=== PATIENT | female | born 1975 | race Caucasian/White ===

== ENCOUNTER 2023-08-11 08:07 | Outpatient (AMB) | payer OTHER, SELFPAY ==
--- NOTE | 2023-08-11 08:11 | AM.OFFWIN_ITS ---
Intake Vital Signs 08/11/23 08:12 Height 5 ft Weight 141 lb BMI 27.5 BP 104/66 Blood Pressure Location Lt brachial Position Sitting Pulse 81 Pulse Source Pulse Oximeter Temp 98.6 F Temp Source Oral Pulse Oximetry (%) 98 Oxygen Delivery Method Room Air Intake Visit Reasons: EP sore throat chills [place] Intake Note: Pt is here today for a walk in visit. Pt c/o fever chills sweats diarrhea for 2 days home test for Covid negative. Pt states that now she has sore throat and it hurts to swallow. Allergies No Known Allergies Allergy (Verified 08/11/23 08:17) HPI HPI Comments History of Present Illness Details 48-year-old female presents today compla ining of a sore throat for the last 4 days. She states she had fever at home of 102 which has resolved but her sore throat has continued. She took 2 COVID tests at home that were negative. 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 Review of Systems Const Reports body aches, Reports chills and Reports fatigue Eyes Reports no additional complaints ENT Reports sore throat Card Reports no additional complaints Resp Reports no additional complaints GI Reports diarrhea (resolved) Reports no additional complaints Endo Reports fatigue Physical Exam Vital Signs: Last Vital Signs Temp 98.6 F 08/11/23 08:12 Pulse 81 08/11/23 08:12 BP 104/66 08/11/23 08:12 Pulse Ox 98 08/11/23 08:12 Oxygen Delivery Method Room Air 08/11/23 08:12 BMI result Body Mass Index 27.5 Const General: cooperative and healthy appearing HEENT Head: Yes normal to inspection, Yes normocephalic and Yes atraumatic Ears: hearing grossly normal bilaterally, external ears normal, TM's normal bilaterally, TM normal on the right, TM normal on the left and EAC's normal General nose exam: Normal external nose present Face and sinus: Yes normal facial exam Mouth: Normal oral and palatal mucosa present Teeth and gingiva: gingiva normal Throat: Yes abnormal tonsil (Erythema present with exudate) Eyes General: appearance normal, both eyes and all related structures Neck Lymphatic: lymphadenopathy (Anterior cervical) Resp Effort & Inspection: normal respiratory effort Auscultation: clear to auscultation bilaterally Cardio Palpation: normal PMI Rate: regular rate Rhythm: regular rhythm Results AMB Rapid Strep AMB Rapid Strep Negative Last Edit by SONJA Huang on 08/11/23 08: 26 Results Reviewed Results Reviewed: Rapid strep negative but reviewed the results with the patient Assessment & Plan Assessment & Plan (1) Exudative pharyngitis: Code(s): J02.9 - Acute pharyngitis, unspecified Plan Due to the symptoms in the exudative pharyngitis the patient was put on antibi otics and viral swab sent. We will contact her tomorrow. 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 Orders: Orders AMB Rapid Strep Screen Today Z13.9 - Encounter for screening, unspecified Medications: New amoxicillin 875 mg PO BID 7 days 14 tabs 0RF Coding Level of Care Code Est Pt Level 3 (33244) Diagnoses Exudative pharyngitis J02.9 Time Spent (min) 20
[2023-08-11 08:12] VITALS: BP 104/66; PULSE 81; TEMP 37; O2SAT 98; BMI 27.5
== END 2023-08-11 09:59 | disposition home or self-care (01) ==
PROVIDERS: PCP Internal Medicine; Visit Provider Physician Assistant Medical
DX: J02.9 Acute pharyngitis, unspecified (principal)
CPT/HCPCS: 87880; 99213

== ENCOUNTER 2023-08-11 11:40 | Outpatient (REF) | payer OTHER, SELFPAY ==
[2023-08-11 12:32] LABS: Influenza A PCR NEGATIVE (Negative); Influenza B PCR NEGATIVE (Negative); Resp Syncy Virus RNA Qual PCR NEGATIVE (Negative); SARS COV2 PCR INHOUSE POSITIVE (Negative)
== END 2023-08-11 11:41 | disposition home or self-care (01) ==
LOC: HO.LNP 11:40
PROVIDERS: Visit Provider Physician Assistant Medical
DX: Z11.52 Encounter for screening for COVID-19 (principal); Z20.822 Contact with and (suspected) exposure to COVID-19; J02.9 Acute pharyngitis, unspecified
CPT/HCPCS: 0241U